=== PATIENT | female | born 1995 | race Caucasian/White ===

== ENCOUNTER 2021-05-09 19:21 | Emergency (ER) | payer OTHER ==
[~2021-05-09] VITALS: Ht 162.6 cm; Wt 81.7 kg
[2021-05-09 19:26] VITALS: BP 136/74
== END 2021-05-09 20:50 | disposition home or self-care (01) ==
LOC: ER 19:21
DX: S61.012A Laceration without foreign body of left thumb without damage to nail, initial encounter (principal); W26.0XXA Contact with knife, initial encounter; Y93.89 Activity, other specified; Y92.89 Other specified places as the place of occurrence of the external cause; Y99.9 Unspecified external cause status